=== PATIENT | male | born 1965 | race Caucasian/White ===

== ENCOUNTER 2019-02-16 18:10 | Emergency (ER) | payer OTHER | END 2019-02-16 20:08 | disposition home or self-care (01) | LOC: JER 18:10 ==

== ENCOUNTER 2020-07-16 04:37 | Day surgery (SDC) | payer OTHER ==
[2020-07-15 13:28] VITALS: BMI 27.9
[2020-07-16 06:45] LABS: BASO % 0.6 % (0-2.0); EOS % 2.4 % (0-4.5); HEMATOCRIT 45.3 % (35.4-49); LYMPH % 29.7 % (8-40); MCH 27.9 pg (25.7-33.7); MCHC 33.1 g/dl (32.0-35.9); MEAN CELL VOLUME 84.3 fl (80-96); MEAN PLT VOLUME 9.3 fl (7.5-11.1); MONO % 7.4 % (3.8-10.2); NEUT % 59.9 % (42.8-82.8); PLATELET COUNT 186 K/MM3 (134-434); RBC 5.37 M/mm3 (4.00-5.60); RDW 13.9 % (11.9-15.9); WHITE BLOOD COUNT 5.7 K/mm3 (4.0-10.0)
[2020-07-16] MEDS ORDERED: MIDAZOLAM HCL 2 MG/2 ML SINGLE DOSE VIAL ONE ×3 (07:12→07:20)
[2020-07-16] MEDS ORDERED: ROCURONIUM BROMIDE 50 MG/5 ML SYRINGE ONE (07:19)
[2020-07-16] MEDS ORDERED: PROPOFOL 20 ML ONE (07:19)
[2020-07-16] MEDS ORDERED: SUCCINYLCHOLINE CHLORIDE 200 MG/10 ML SYRINGE ONE (07:19)
[2020-07-16] MEDS ORDERED: LIDOCAINE HCL/PF 2% SDV 5ML VIAL ONE (07:19)
[2020-07-16] MEDS ORDERED: DEXAMETHASONE SOD PHOSPHATE 4 MG/1 ML VIAL ONE (07:19)
[2020-07-16] MEDS ORDERED: fentaNYL CITRATE 250 MCG/5 ML VIAL ONE (07:19)
[2020-07-16 07:23] LABS: POTASSIUM 3.4 mmol/L (3.5-5.1)
[2020-07-16 07:25] LABS: CALCIUM 8.9 mg/dL (8.5-10.1)
[2020-07-16 07:26] LABS: ALBUMIN 4.3 g/dl (3.4-5.0)
[2020-07-16 07:30] LABS: BILIRUBIN,TOTAL 0.6 mg/dL (0.2-1)
[2020-07-16 07:31] LABS: TOT PROT 7.5 g/dl (6.4-8.2)
[2020-07-16] MEDS ORDERED: BUPIVACAINE HCL 50 ML ONE (07:34)
[2020-07-16 07:38] LABS: ACTIVATED PTT 35.3 SECONDS (25.2-36.5); INR 1.01 (0.83-1.09); PROTHROMBIN TIME (PATIENT) 12.2 SEC (9.7-13.0)
[2020-07-16] MEDS ORDERED: BUPIVACAINE LIPOSOME/PF (EXPAREL) 266 MG/20 ML VIAL ONE (07:46)
[2020-07-16] MEDS ORDERED: ceFAZolin SODIUM 1 GM VIAL ONE (08:26)
[2020-07-16] MEDS ORDERED: ceFAZolin SODIUM 1 GM VIAL IVPB ONE (08:30)
[2020-07-16] MEDS ORDERED: EPHEDRINE SULFATE/0.9% NACL/PF 50 MG/10 ML SYRINGE NR ONE (08:35)
[2020-07-16] MEDS ORDERED: NEOSTIGMINE METHYLSULFATE 0.5 MG/ML - 10 ML MDV ONE (10:26)
[2020-07-16] MEDS ORDERED: GLYCOPYRROLATE 0.2 MG/1 ML VIAL ONE (10:26)
[2020-07-16] MEDS ORDERED: ONDANSETRON 4 MG/2 ML VIAL IVPUSH PRN (12:16)
[2020-07-16] MEDS ORDERED: oxyCODONE HCL 5 MG TABLET PO PRN ×2 (12:16)
[2020-07-16] MEDS ORDERED: LACTATED RINGERS SOLUTION 1,000 ML IV SCH (12:30)
[2020-07-16] MEDS ORDERED: oxyCODONE HCL 5 MG TABLET ONE (13:14)
[2020-07-16] MEDS ORDERED: oxyCODONE HCL 5 MG TABLET PO ONE (13:21)
[2020-07-16 14:54] VITALS: BP 143/95; PULSE 92; TEMP 96.3
== END 2020-07-16 16:10 | disposition home or self-care (01) ==
LOC: JASU-SURG 04:37
PROVIDERS: ATTEND Surgery
PROC: 0YUA4JZ Supplement Bilateral Inguinal Region with Synthetic Substitute, Percutaneous Endoscopic Approach (ICD-10-PCS; principal; 2020-07-16 08:00)
DX: K40.20 Bilateral inguinal hernia, without obstruction or gangrene, not specified as recurrent (principal)
CPT/HCPCS: 36415; 80053; 85025; 85610; 85730; 93005; 93010; 94760